=== PATIENT | female | born 1965 | race Caucasian/White ===

== ENCOUNTER → 2017-02-04 | Outpatient (CLI) | payer OTHER | END | disposition home or self-care (01) | LOC: CFH 13:03 | PROVIDERS: ATTEND Internal Medicine Cardiovascular Disease | DX: I34.0 Nonrheumatic mitral (valve) insufficiency (principal); I37.1 Nonrheumatic pulmonary valve insufficiency | CPT/HCPCS: 93306 ==

== ENCOUNTER 2018-08-14 06:02 | Day surgery (SDC) | payer OTHER ==
[~2018-08-14] VITALS: Ht 160 cm; Wt 68.2 kg
[2018-08-14 06:30] VITALS: BP 126/68
[2018-08-14] MEDS ORDERED: SODIUM CHLORIDE 0.9% 1,000 ML IV ONE (06:30)
[2018-08-14] MEDS ORDERED: LISI5TAB7 PO (06:46)
[2018-08-14] MEDS ORDERED: OMEG1CAP23 PO (06:46)
[2018-08-14] MEDS ORDERED: CALC1TAB84 PO (06:46)
[2018-08-14] MEDS ORDERED: VITA1TAB19 PO (06:46)
[2018-08-14] MEDS ORDERED: CHOL100011 PO (06:46)
[2018-08-14] MEDS ORDERED: LEVO150T PO (06:46)
[2018-08-14] MEDS ORDERED: SUMA4CAR SC (06:46)
[2018-08-14] MEDS ORDERED: AMLO-150 PO (06:46)
[2018-08-14] MEDS ORDERED: [UNRECOGNIZED DRUG - CODE] PO (06:46)
[2018-08-14] MEDS ORDERED: CARB200C3 PO (06:46)
[2018-08-14] MEDS ORDERED: MULT-717 PO (06:46)
[2018-08-14] MEDS ORDERED: LEVE500T53 PO (06:46)
== END 2018-08-14 10:03 | disposition home or self-care (01) ==
LOC: CACL 06:02
PROVIDERS: ATTEND Internal Medicine Cardiovascular Disease
DX: I34.0 Nonrheumatic mitral (valve) insufficiency (principal); I07.1 Rheumatic tricuspid insufficiency; E03.9 Hypothyroidism, unspecified; E23.0 Hypopituitarism; I10 Essential (primary) hypertension
CPT/HCPCS: 93312; 93321; 93325